=== PATIENT | female | born 1950 | race African-American/Black ===

== ENCOUNTER 2018-11-11 10:56 | Day surgery (SDC) | payer OTHER, BC ==
[2018-11-07 13:53] VITALS: BMI 32.9
[2018-11-11] MEDS ORDERED: methylPREDNISolone ACET (DEPO) 40 MG/1 ML VIAL ONE (13:58)
[2018-11-11] MEDS ORDERED: BUPIVACAINE HCL 0.25% 125 MG/50 ML VIAL ONE (13:58)
[2018-11-11] MEDS ORDERED: MIDAZOLAM HCL 2 MG/2 ML SINGLE DOSE VIAL ONE (14:22)
[2018-11-11] MEDS ORDERED: PROPOFOL 20 ML ONE (14:26)
[2018-11-11] MEDS ORDERED: DEXAMETHASONE SOD PHOSPHATE 4 MG/1 ML VIAL ONE (14:27)
[2018-11-11] MEDS ORDERED: LIDOCAINE HCL/PF 2% SDV 5ML VIAL ONE (14:27)
[2018-11-11] MEDS ORDERED: ONDANSETRON 4 MG/2 ML VIAL ONE (14:27)
[2018-11-11] MEDS ORDERED: ceFAZolin SODIUM 1 GM VIAL ONE (14:35)
--- NOTE | 2018-11-11 15:22 | PN ---
Progress Note (short form) - Note Progress Note: 67F s/p SALK POD #0. -Pain control. -WBAT LLE. -Percocet, Meloxicam ordered to patient's pharmacy. -f/u post-op trial of void. -Diet as tolerated. -Keep dressing clean & dry; d/c on Wednesday & place waterproof Band-Aids over incision sites. -Cane vs crutches. -f/u [facility] [place] office 11/18/2018; call for appointment; . Luis Santana MD (Orthopaedic Surgery).
--- NOTE | 2018-11-11 15:24 | OP ---
Operative Note - Note: Operative Date: 11/11/18 Pre-Operative Diagnosis: Internal derrangements left knee Operation: Surgical arthroscopy left knee Findings: Tricompartment osteoarthritis left knee Post-Operative Diagnosis: Same as Pre-op Surgeon: Luis Santana Anesthesia: General Estimated Blood Loss (mls): 0 Fluid Volume Replaced (mls): 800 (Crystalloid) Operative Report Dictated: Yes
--- NOTE | 2018-11-11 16:22 | OP ---
DATE OF OPERATION: 11/11/2018 PREOPERATIVE DIAGNOSIS: Valgus knee for diagnostic arthroscopy to evaluate medial femoral condyle for planned supracondylar osteotomy. POSTOPERATIVE DIAGNOSIS: Severe tricompartment osteoarthritis. OPERATION PERFORMED: Arthroscopy left knee. SURGEON: Luis Santana M.D. ANESTHESIA: General. ANTIBIOTICS GIVEN: 2 g Kefzol. DESCRIPTION OF PROCEDURE: With the patient in supine position, under general anesthesia, left lower extremity was prepped, predraped in routine manner, with Betadine scrub solution, wiped with alcohol, DuraPrep applied. Imaging was available for intraoperative evaluation, and timeout was called. Arthroscopy instrumentation was introduced through a standard anterolateral portal. 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 The menisci surprisingly reasonably well maintained. The lateral meniscus revealed some fibrillar internodular fragmented tearing, but I decided to leave this well alone, as removal of this meniscus or fragments thereof would accelerate the destructive arthropathy process in this woman. Patient requires a standard patellar knee arthroplasty. The wounds were thoroughly lavaged. The ports were closed with 3-0 nylon. Operation went well. No complications. MD BALJEET Hughes/[id number] MTDD
[2018-11-11] MEDS ORDERED: oxyCODONE HCL 5 MG TABLET PO PRN ×2 (16:27)
[2018-11-11] MEDS ORDERED: ONDANSETRON 4 MG/2 ML VIAL IVPUSH PRN (16:27)
[2018-11-11] MEDS ORDERED: LACTATED RINGERS SOLUTION 1,000 ML IV SCH (16:30)
[2018-11-11 17:41] VITALS: TEMP 97.9
[2018-11-11 17:52] VITALS: BP 153/70; PULSE 60
[2018-11-12] MEDS ORDERED: PANTOPRAZOLE 40 MG TABLET (FP) PO SCH (10:00)
[2018-11-12] MEDS ORDERED: PATIENT'S OWN MEDICATION (NON-FORMULARY) (Omeprazole [Omeprazole] 40 MG) PO SCH (10:00)
[2018-11-12] MEDS ORDERED: METOPROLOL TARTRATE 25 MG TABLET (FP) PO SCH (10:00)
[2018-11-12] MEDS ORDERED: valACYclovir HCL 500 MG TABLET (FP) PO SCH (10:00)
== END 2018-11-11 16:45 | disposition home or self-care (01) ==
LOC: FASU 10:56
PROVIDERS: ATTEND Orthopaedic Surgery Orthopaedic Surgery of the Spine
PROC: 0SJD4ZZ Inspection of Left Knee Joint, Percutaneous Endoscopic Approach (ICD-10-PCS; principal; 2018-11-11 12:30)
DX: Z01.818 Encounter for other preprocedural examination (principal); M17.12 Unilateral primary osteoarthritis, left knee
CPT/HCPCS: 94760